=== PATIENT | female | born 1990 | race Caucasian/White ===

== ENCOUNTER 2017-02-28 13:01 | Emergency (ER) | payer OTHER ==
--- NOTE | ~2017-02-28 | US61 ---
[facility] A Service of [facility] / [facility] RADIOLOGY TEXT RESULTS PATIENT: ALISE MASON LOCATION: [facility] : 88 UNIT #: [id number] AGE: [address]: Concetta Rothman MD SEX: F ORDER DR: [id number] [facility] [address] [place], [place] [address] [id number] E MR#: [id number] Acc #: [id number] NAME: ALISE MASON. : 1990 SEX: F STUDY DATE/TIME: 02/28/2017 15:36 UNIT: PAT ROOM: STUDY DESCRIPTION: US /Mat <14Wk / Attending Physician: Concetta Rothman M.D. Ordering Physician: Concetta Rothman M.D. Primary Care Physician: Primary Care Physician No MEDICAL IMAGING REPORT This report is preliminary unless electronic signature is present EXAM First trimester pelvic ultrasound INDICATIONS Right lower quadrant abdominal and pelvic pain for the past 2 days with vaginal bleeding over the past 4 days. Quantitative beta HCG level pending at the time of this study. PROCEDURE Ge-scale and Doppler imaging of pelvis via transabdominal and transvaginal approach. COMPARISON None FINDINGS Uterus anteverted, measures 8.7 x 4.7 x 5.3 cm. Endometrium measures approximately 1.4 cm in thickness. There is no gestational sac seen in the endometrial cavity. Left ovary measures 3.1 x 2.4 x 3.3 cm. Right ovary measures 1.6 x 2.3 x 2.1 cm. Trace amount of fluid in the right adnexa. IMPRESSION There is no identifiable gestational sac. Endometrium measures up to 1.4 cm, which is upper limits of normal for the patient's age. Probably related to the phase of menstrual cycle. Correlate with beta HCG levels when available. Repeat pelvic ultrasounds can be performed as deemed clinically appropriate. Dictated by... Kyle Patton M.D. [facility] A Service of [facility] / [facility] RADIOLOGY TEXT RESULTS PATIENT: ALISE MASON LOCATION: [facility] : 88 UNIT #: [id number] AGE: [address]: Concetta Rothman MD SEX: F ORDER DR: THIS IS AN ELECTRONICALLY VERIFIED REPORT Kyle Patton M.D. at 03/01/2017 7:09 AM EED/sonja TD: 02/28/2017 23:33 JOB #: [id number] MEDICAL IMAGING REPORT Page 1 of 1 COPY
[~2017-02-28 13:01] MED LIST: CIPRO PO; CLARITIN10 MG PO; ELIMITE60 GM TOP; FIORICET W/CODE1 CAP PO; FLEXERIL10 MG PO; FLONASE 0.05% N16 G1; FLOXIN10 ML AS; LIDOCAINE HCL 220 ML EXT; LORTAB 5-325 M1 EACH PO; LORTAB 7.51 TAB 7.5/ PO; MOTRIN400 MG PO; NAPROSYN500 MG PO; NO MEDICATIONS; PHENERGAN25 MG PO; PREDNISONE PO; PRENATAL1 TA1; PYRIDIUM PO; ROBITUSSIN DM118 ML PO; SEROQUEL PO; ULTRAM PO; ZITHROMAX PO; ZOFRANODT PO; ZOLOFT PO; ZYRTEC10 M2 PO
[2017-02-28 14:04] LABS: URINE SOURCE CLEAN CATCH
[2017-02-28 14:24] LABS: URINE APPEARANCE CLOUDY; URINE BILIRUBIN NEG (NEG); URINE BLOOD NEG (NEG); URINE COLOR YELLOW; URINE GLUCOSE NEG (NEG); URINE KETONE NEG (NEG); URINE LEUKOCYTE ESTERASE 3+ (NEG); URINE NITRATE NEG (NEG); URINE PH 6.5 (5-8); URINE PROTEIN NEG (NEG); URINE SPECIFIC GRAVITY 1.024 (1.003-1.035)
[2017-02-28 14:28] LABS: CULTURE INDICATED? YES; URINE BACTERIA AUWI 2+ (NEGATIVE); URINE SQUAMOUS EPITHELIAL CELL MOD /[HPF]; UWBCS1 AUWI 25-50 (0-5)
[2017-02-28 15:50] LABS: BASOPHIL# 0.1 X10e3 (0-0.3); BASOPHIL% 1.2 % (0-2.5); EOSINOPHIL# 0.1 X10e3 (0-0.7); EOSINOPHIL% 1.4 % (0.0-7.0); HEMATOCRIT 41.7 % (35.0-45.0); HEMOGLOBIN 13.9 gm/dL (12.0-16.0); LYMPHOCYTE# 1.6 X10e3 (1.0-3.5); LYMPHOCYTE% 20.5 % (17.0-45.0); MEAN CELL VOLUME 84.8 FL (83-96); MEAN CORPUSCULAR HEMOGLOBIN 28.3 PG (28-34); MEAN CORPUSCULAR HGB CONC 33.3 g/dL (30-36); MEAN PLATELET VOLUME 7.5 FL (6.5-11.5); MONOCYTE# 0.5 X10e3 (0-1.0); MONOCYTE% 6.1 % (3.0-12.0); NEUTROPHIL# 5.6 X10e3 (1.5-7.1); NEUTROPHIL% 70.8 % (40-75); PLATELET COUNT 239 X10e3 (140-420); RED BLOOD COUNT 4.92 X10e (3.90-5.30); RED CELL DISTRIBUTION WIDTH 14.1 % (11.0-15.5)
[2017-02-28 15:54] LABS: DIFF IND NO
[2017-02-28 16:15] LABS: BUN/CREATININE RATIO 11.42; CALCIUM SERUM 8.8 mg/dL (8.4-10.2); CREATININE SERUM 0.7 mg/dL (0.6-1.4); GLOM FILT RATE Estimated 118.7 mL/min (>60); POTASSIUM 3.2 mmol/L (3.5-5.1)
== END 2017-02-28 17:29 | disposition home or self-care (01) ==
LOC: CED 13:01
PROVIDERS: Student in an Organized Health Care Education/Training Program
DX: O23.40 Unspecified infection of urinary tract in pregnancy, unspecified trimester (principal)
CPT/HCPCS: 36415; 76801; 80048; 81003; 84702; 84703; 85025; 87086; 99284